=== PATIENT | male | born 1985 | race Caucasian/White ===

== ENCOUNTER 2020-01-06 13:20 | Outpatient (CLI) | payer OTHER, SELFPAY ==
--- NOTE | ~2020-01-06 | XR_ITS ---
EXAMINATION: XR foot LT 2V DATE: 01/06/2020 13:44 INDICATION: Left foot pain. TECHNIQUE: 2 views of left foot were obtained. COMPARISON: None. FINDINGS: Bone alignment is normal. No acute fracture. There is an old healed fracture of neck of sec ond metatarsal. There is mild osteoarthritis of talonavicular joint. IMPRESSION: 1. Mild osteoarthritis of talonavicular joint. Reviewed, dictated and finalized at location B.
== END 2020-01-06 13:21 | disposition home or self-care (01) ==
LOC: ANHIMG 13:26
PROVIDERS: PCP Family Medicine; Visit Provider Nurse Practitioner Family
DX: M79.673 Pain in unspecified foot (principal); M19.072 Primary osteoarthritis, left ankle and foot
CPT/HCPCS: 73620

== ENCOUNTER 2020-02-24 15:46 | Outpatient (CLI) | payer OTHER, SELFPAY ==
--- NOTE | ~2020-02-24 | CT_ITS ---
EXAMINATION: CT soft tissue neck w con EXAM DATE: 02/24/2020 16:19 INDICATION: Laryngeal neoplasm. TECHNIQUE: Spiral CT of the neck was performed following intravenous injection of 75 mL Omnipaque 350 . Axial, coronal and sagittal images were reviewed. The dose-length product (DLP) for this examinat ion was 574.31 mGy-cm. The exposure was tailored according to patient size (auto mA exposure control ), and iterative reconstruction (ASIR) was used as additional dose reduction technique. There is no prior study for comparison. FINDINGS: Mild thyromegaly. The submandibular and parotid glands are symmetric. There is no cervic al lymphadenopathy. There are no masses identified. The superior mediastinum is unremarkable. T he airway is unremarkable. Parapharyngeal and pre-glottic fat planes are preserved. The opacified vasculature is patent. The orbits are unremarkable. Visualized sinuses and mastoid air cells are well aerated. Mild mid cervical disc disease. IMPRESSION: Mild thyromegaly. Reviewed, dictated and finalized at location A. IMPRESSION: Mild thyromegaly.
== END 2020-02-24 15:47 | disposition home or self-care (01) ==
PROVIDERS: PCP Family Medicine; Visit Provider Otolaryngology
DX: E01.0 Iodine-deficiency related diffuse (endemic) goiter (principal)
CPT/HCPCS: 70491; Q9967

== ENCOUNTER 2020-09-20 10:21 | Outpatient (CLI) | payer OTHER, SELFPAY ==
--- NOTE | ~2020-09-20 | XR_ITS ---
XR lumbar spine 2-3V DATE: 09/20/2020 10:50 INDICATION: Mid and low back pain. Injury 15 years ago. TECHNIQUE: AP, lateral, coned lateral lumbosacral views COMPARISON: None FINDINGS: No fracture or dislocation or bone destruction. The lumbar pedicles are intact. Lumbar and lumbosacral interspaces are relatively preserved; there is minimal degenerative disc disease at L2-3. . The sacroiliac joints are intact. IMPRESSION: Minimal degenerative change Reviewed, dictated and finalized at location A. IMPRESSION: Minimal degenerative change
--- NOTE | ~2020-09-20 | XR_ITS ---
XR thoracic spine 2V DATE: 09/20/2020 10:50 INDICATION: Back pain TECHNIQUE: AP, lateral and swimmer views COMPARISON: None FINDINGS: No fracture or dislocation or bone destruction. The pedicles are intact. There is mild dege nerative spurring. IMPRESSION: Mild degenerative Reviewed, dictated and finalized at location A. IMPRESSION: Mild degenerative
== END 2020-09-20 10:22 | disposition home or self-care (01) ==
LOC: ANHIMG 10:25
PROVIDERS: PCP Family Medicine; Visit Provider Physician Assistant Medical
DX: M47.814 Spondylosis without myelopathy or radiculopathy, thoracic region (principal)
CPT/HCPCS: 72070; 72100

== ENCOUNTER → 2022-06-25 15:17 | Outpatient (CLI) | payer OTHER, SELFPAY ==
--- NOTE | ~2022-06-25 | US_ITS ---
EXAMINATION: US thyroid DATE: 06/25/2022 15:35 INDICATION: Abnormal thyroid function tests. Iodine deficiency related diffuse endemic goiter. TECHNIQUE: Multiple ultrasound images of the thyroid were obtained. COMPARISON: Neck CT 02/24/2020 FINDINGS: The right thyroid lobe measures 6.3 x 2.1 x 2.3 cm. The left thyroid lobe measures 6.2 x 2.0 x 2.3 c m. The thyroid is diffusely heterogeneous and hypoechoic with increased vascularity. IMPRESSION: 1. Heterogeneous, hypervascular thyroid, likely chronic lymphocytic (Russ) thyroiditis. Reviewed, dictated and finalized at location A. [employer] WORK[employer]
== END ==
PROVIDERS: PCP Family Medicine; Visit Provider Internal Medicine Endocrinology, Diabetes & Metabolism
DX: E01.0 Iodine-deficiency related diffuse (endemic) goiter (principal); E78.1 Pure hyperglyceridemia
CPT/HCPCS: 76536

== ENCOUNTER 2022-12-18 14:27 | Outpatient (CLI) | payer OTHER, SELFPAY ==
[2022-12-18 16:42] LABS: Liquefaction Semen Complete in 30 min. (<30 minutes); Semen Color Opaque (Grey-opaque); Semen Immotility 10 %; Semen Non-Progressive Motility 35 %; Semen Progressive Motility 55 % (>32); Semen Total Motility 90 (>40% (PM+NP)); Semen Viscosity Not Increased (Not Increa.)
[2022-12-18 16:43] LABS: Semen Morphology Result to Follow
[2022-12-25 22:43] LABS: Fructose, Semen 96 mg/dL (150-600)
== END 2022-12-18 14:28 | disposition home or self-care (01) ==
PROVIDERS: PCP Family Medicine; Visit Provider Obstetrics & Gynecology Gynecology
DX: Z31.49 Encounter for other procreative investigation and testing (principal)
CPT/HCPCS: 82757; 88160; 89320

== ENCOUNTER → 2023-01-20 15:21 | Outpatient (CLI) | payer OTHER, SELFPAY ==
--- NOTE | ~2023-01-20 | XR_ITS ---
Lumbosacral Spine: AP and lateral views Clinical History: Pain Findings: The normal lordotic curve is maintained. The vertebral bodies and posterior elements are i ntact. The intervertebral disc spaces are preserved. The sacroiliac joints are normally outlined. Impression: No significant abnormality. Reviewed, dictated and finalized at [facility]. Impression: No significant abnormality.
--- NOTE | ~2023-01-20 | XR_ITS ---
Cervical Spine: AP, lateral, open-mouth views, with neutral, flexion, extension positioning Clinical History: Pain Findings: The normal lordotic curve is maintained. The vertebral bodies and posterior elements appea r intact. The intervertebral disc spaces are well maintained. Pre-vertebral soft tissues are unremar kable. Impression: No significant abnormality is seen. Reviewed, dictated and finalized at location . Impression: No significant abnormality is seen.
--- NOTE | ~2023-01-20 | XR_ITS ---
Thoracic spine: Clinical Indication: Back pain AP and lateral views were performed. No fracture is seen. There is normal alignment of the vertebrae. There are minimal degenerative disc changes in the thoracic spine. Paravertebral soft tissues appear normal. Impression: Minimal degenerative disc changes throughout the thoracic spine. Reviewed, dictated and finalized at location . Impression: Minimal degenerative disc changes throughout the thoracic spine.
== END ==
PROVIDERS: PCP Family Medicine; Visit Provider Nurse Practitioner Family
DX: M54.9 Dorsalgia, unspecified (principal); M54.2 Cervicalgia; R20.2 Paresthesia of skin
CPT/HCPCS: 72052; 72070; 72100

== ENCOUNTER 2023-08-02 11:55 | Emergency (ER) | payer OTHER, SELFPAY ==
--- NOTE | ~2023-08-02 | XR_ITS ---
XR hand RT min 3V 08/02/2023 12:39 INDICATION: Right hand pain after trauma PROCEDURE: 3 views right hand COMPARISON: No prior studies for comparison. FINDINGS: Fracture, dislocation or subluxation is not identified. The soft tissues appear within norm al limits. No foreign bodies are identified. IMPRESSION: 1: NO ACUTE BONE OR JOINT ABNORMALITY IDENTIFIED. Reviewed, dictated and finalized at location A.
[2023-08-02 11:57] VITALS: BP 152/101; PULSE 100; RESP 16; TEMP 36.7; O2SAT 100
--- NOTE | 2023-08-02 12:26 | ED.UPPEXIN ---
HPI - Extremity Injury (Upper) General Chief Complaint: Extremity Injury, Upper Stated Complaint: R HAND INJURY Time Seen by Provider: 08/02/23 12:13 Source: patient Mode of arrival: ambulatory Limitations: no limitations History of Present Illness HPI narrative: 38 years old white male came to the emergency room with pain at the right hand after a tree branch fell on it. Prior to arrival. He denies other injuries. Related Data Home Medications Medication Instructions Recorded Confirmed cetirizine 10 mg capsule (Zyrtec) 10 mg PO DAILY PRN 08/29/20 01/20/23 fluticasone propionate 50 1 spray intranasal DAILY PRN 12/03/21 01/20/23 mcg/actuation nasal spray,suspension ondansetron 4 mg disintegrating 4 mg PO Q6H PRN nausea and vomiting 10/21/22 01/20/23 tablet Allergies Allergy/AdvReac Type Severity Reaction Status Date / Time sulfanilamide Allergy Unknown Unknown Verified 08/02/23 11:56 Review of Systems Review of Systems: All systems reviewed & are unremarkable except as noted in HPI and below PMFSH Past Medical History Medical History Adult BMI 29.0-29.9 kg/sq m Anti-TPO antibodies present BMI 30.0-30.9,adult Bronchitis Chronic back pain COVID-19 Epistaxis Hypothyroidism Low testosterone Migraine, unspecified, intractable, without status migrainosus Seasonal allergies Sleep apnea Tobacco abuse Surgical History Surgical History History of knee surgery left knee x2 History of surgery on arm left arm x2 for broken arm [place] teeth extracted Family History Family History Father Diabetes mellitus Heart disease Mother Thyroid activity decreased Sibling No problems noted. Other Asthma Family history of coronary artery disease Hypertension Social History Social History Smoking status: Former smoker (Currently Chews tobacco ) Tobacco type: smokeless tobacco Second hand tobacco smoke exposure: Yes Alcohol intake: current Alcohol use details: socially Substance use: never Substance use type: does not use Lack of Transportation: No Lack of Food: Never True Current Housing: I Have Housing Concerned About Future Housing: No Difficulty Paying Gas/Electric Bills: No Difficulty Paying for Meds: No Currently Unemployed: No Education: High School Diploma/GED Difficulty w/ Childcare or Family Care: No Living arrangements: with family Occupation/Education: occupation 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 Gender identity (if verbalized by the patient): Male Exam Narrative: General appearance: Well-developed, well-nourished Skin: Normal color Head: Normocephalic, nontraumatic Eyes: Clear conjunctiva ENT: Oropharynx normal, ears normal, nose normal Neck: Supple, nontender Chest and respiratory: Airway patent, no respiratory distress, no accessory muscle use Heart: Regular rate/rhythm Abdomen: Soft, nontender, no organomegaly, quiet bowel sounds Vascular: Normal peripheral pulses, normal capillary refill. 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
== END 2023-08-02 14:10 | disposition home or self-care (01) ==
PROVIDERS: Emergency Provider Emergency Medicine; PCP Family Medicine
DX: S60.221A Contusion of right hand, initial encounter (principal); E03.9 Hypothyroidism, unspecified; G47.30 Sleep apnea, unspecified; Z86.16 Personal history of COVID-19; F17.220 Nicotine dependence, chewing tobacco, uncomplicated; W20.8XXA Other cause of strike by thrown, projected or falling object, initial encounter
CPT/HCPCS: 73130; 99283

== ENCOUNTER 2024-08-19 15:12 | Outpatient (CLI) | payer OTHER, SELFPAY ==
--- OUTSIDE RECORDS SUMMARY | 2024-08-19 15:35 | XMS_ITS | Clinical Summary ---
Author Organization 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 Name Role Phone Unavailable Primary Care Provider Unavailabl e Social History Tobacco Use Types Packs/Day Years Used Date Smoking Tobacco: Never Assessed Sex and Gender Information Value Date Recorded Sex Assigned at Not on file Legal Sex Male 7:33 PM CDT Gender Identity Not on file Sexual Orientation Not on file Plan of Treatment Health Maintenance Due Date Last Done Comments Annual Physical 1990 Hepatitis C 2005 DTaP, Tdap and Td Vaccines ( 1 - Tdap) 2006 Hepatitis B Vaccines (1 of 3 - 19+ 3-dose series) 2006 COVID-19 Vaccine (2023-2 5 season) 2024 HPV Vaccines Aged Out No longer eligi ble based on patient's age to complete this topic Meningococcal B Vaccine Aged Out No l onger eligible based on patient's age to complete this topic Meningococcal Vaccine Aged Out No dickson marbella eligible based on patient's age to complete this topic Pneumococcal Vaccine: Pediat rics (0 to 5 Years) and At-Risk Patients (6 to 64 Years) Aged Out No longer eligible b ased on patient's age to complete this topic RSV Immunizations Under 20 Months Aged Out No longer eligible based on patient's age to complete this topic
[2024-08-19 16:57] LABS: Free T4 Free Thyroxine 0.84 ng/dL (0.78-2.19)
== END 2024-08-19 15:13 | disposition home or self-care (01) ==
LOC: ANHLAB 15:14
PROVIDERS: PCP Family Medicine; Visit Provider Internal Medicine Endocrinology, Diabetes & Metabolism
DX: E03.9 Hypothyroidism, unspecified (principal)
CPT/HCPCS: 36415; 84439; 84443

== ENCOUNTER 2024-10-23 07:52 | Outpatient (CLI) | payer OTHER, SELFPAY ==
[2024-10-23 08:52] LABS: Alanine Aminotransferase 41 U/L (6-50); Albumin Level 4.5 g/dL (3.5-5.1); Alkaline Phosphatase 68 U/L (38-126); Anion Gap 9 mmol/L (4-12); Aspartate Amino Transferase 33 U/L (17-59); Bilirubin,Total 1.2 mg/dL (0.2-1.3); Blood Urea Nitrogen 13 mg/dL (9-20); Calcium 9.3 mg/dL (8.4-10.2); Carbon Dioxide 26 mmol/L (22-30); Chloride 106 mmol/L (98-107); Cholesterol 142 mg/dL (0-200); Estimated Glomerular Filt Rate > 60; Glucose 98 mg/dL (65-110); HDL Direct 37 mg/dL; Potassium 3.9 mmol/L (3.4-5.0); Sodium 141 mmol/L (137-145); Triglycerides 433 mg/dL (<150)
[2024-10-23 09:04] LABS: LDL Cholesterol Direct 39 mg/dL
== END 2024-10-23 07:53 | disposition home or self-care (01) ==
LOC: ANHLAB 07:53
PROVIDERS: PCP Family Medicine; Visit Provider Family Medicine
DX: E78.5 Hyperlipidemia, unspecified (principal); R73.9 Hyperglycemia, unspecified; Z13.220 Encounter for screening for lipoid disorders
CPT/HCPCS: 36415; 80048; 80061; 80076